=== PATIENT | female | born 2000 | race Asian ===

== ENCOUNTER 2020-07-06 13:09 | Outpatient (CLI) | payer OTHER, SELFPAY ==
--- NOTE | ~2020-07-06 | US_ITS ---
US breast BI complete DATE: 07/06/2020 13:48 INDICATION: Bilateral breast pain for years TECHNIQUE: Real-time imaging and color flow imaging of both complete breasts COMPARISON: None FINDINGS: Dense fibroglandular stroma is noted bilaterally. No suspicious mass or shadowing or suspic ious vascularity or other significant sonographic finding is noted. IMPRESSION: BI-RADS Category 1: Negative Recommendation: Routine mammographic screening beginning at age 40 unless there are high risk factors such as genetic predisposition or if breast physical findings or symptoms develop earlier. Reviewed, dictated and finalized at Location [facility]. Reviewed, dictated and finalized at location A. RNEY LAW CLERK IMPRESSION: BI-RADS Category 1: Negative Recommendation: Routine mammographic screening beginning at age 40 unless there are high risk factors such as genetic predisposition or if breast physical fin dings or symptoms develop earlier.
== END 2020-07-06 13:10 | disposition home or self-care (01) ==
PROVIDERS: PCP Emergency Medicine; Visit Provider Nurse Practitioner Obstetrics & Gynecology
DX: N64.4 Mastodynia (principal)
CPT/HCPCS: 76641

== ENCOUNTER 2021-05-20 07:30 | Outpatient (RCR) | payer OTHER, SELFPAY ==
--- NOTE | 2021-04-15 09:19 | PTOPEVAL ---
Thank you for referring Renuka Cohen to [facility].? The patient is scheduled to be seen for therapy? 1 x/week for 5 weeks. Please review, sign, date and return this plan of care JULISA. I agree with and certify that the following plan of care is medically necessary. Referring Physician Date Attending Provider: Handy Hernández MD Problem Diagnosis right RTC tear of supraspinatus and subscapularis Onset 4-5 months Additional Evaluation Detail She was perform body weight resistance or yoga until shoulder pain increased. Subjective Information Denies any injury to cause the Query Text:As Reported By Patient/ shoulder injury. She reports Family limitations with reaching behind her back. She report limitations with reaching onto high shelf, lifting objects, reaching behind for ADL's. She is unable to sleep on her right UE. She reports limitations with shoulder motion. 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 She is able to perform her job. She uses a ying for anything over 30#. Diagnostic Tests Other Tests For This Problem Yes: US- right and left shoulder Pain Assessment Self Report Pain Assessment Right Shoulder(s) Reported Pain Level 5 Pain Description Burning,Tightness Pain Frequency Continuous Lowest Pain Intensity 5 Greatest Pain Intensity 8 Pain Aggravating Factors ADL's,Lifting,Prolonged Position Upper Extremity Range of Motion Scapular/ Shoulder Range of Motion Left Shoulder Flexion - Active 170 Shoulder Extension - Active 52 Shoulder Abduction - Active 165 Shoulder Medial Rotation - Active 90 Shoulder Medial Rotation - Active T7Reach Behind the Back Shoulder Lateral Rotation - Active 85 Shoulder Lateral Rotation - Active T2:Reach Behind the Head Scapular/Shoulder Range of Motion Pain Limitations Scapular/Shoulder Range of Motion clicking with motions Right Shoulder Flexion - Active 160 Shoulder Extension - Active 40 Shoulder Abduction - Active 144 Shoulder Medial Rotation - Active 72 Shoulder Medial Rotation - Active T10:Reach Behind the Back Shoulder Lateral Rotation - Active 70
--- NOTE | 2021-05-20 08:27 | PTOPEVAL ---
Physical Therapy Discharge Note Thank you for referring Renuka Cohen to [facility]. Renuka has attended 6 therapy visits to address shoulder limitations. She has achieved her therapy goals and demonstrates indep with her HEP. Please see summary below for detail of progress. Will DC skilled therapy services at this time. Please review, sign, date and return this discharge summary JULISA. I agree with and certify that the following plan of care is medically necessary. Referring Physician Date Attending Provider: Handy Hernández MD Diagnosis right RTC tear of supraspinatus and subscapularis Onset 4-5 months Additional Evaluation Detail She was perform body weight resistance or yoga until shoulder pain increased. Subjective Information She reports improved ability Query Text:As Reported By Patient/ to perform reaching task with Family only slight pain. She is able to lift objects with decreased pain. She is able to sleep 4 to 6 hrs without problems. Denies any limitations with work related task. Denies any limitations with HEP. Pain Assessment Self Report Pain Assessment Right Shoulder(s) Reported Pain Level 2 Pain Description Burning,Tightness Pain Frequency Intermittent Lowest Pain Intensity 0 Greatest Pain Intensity 5 Upper Extremity Range of Motion Scapular/ Shoulder Range of Motion Left Shoulder Flexion - Active 175 Shoulder Extension - Active 52 Shoulder Abduction - Active 175 Shoulder Medial Rotation - Active 90 Shoulder Medial Rotation - Active T7:Reach Behind the Back Shoulder Lateral Rotation - Active 85 Shoulder Lateral Rotation - Active T2:Reach Behind the Head Right Shoulder Flexion - Active 175 Shoulder Extension - Active 50 Shoulder Abduction - Active 173 Shoulder Medial Rotation - Active 85 Shoulder Medial Rotation - Active T9Reach Behind the Back Shoulder Lateral Rotation - Active 85 Shoulder Lateral Rotation - Active T2*Reach Behind the Head Scapular/Shoulder Range of Motion no pain Comments Upper Extremity Muscle Strength Testing Scapular/Shoulder Right Scapular Retraction - Rhomboid 4 Good Scapular Retraction - Middle Trapezius 4 Good Scapular Retraction - Lower Trapezius 3+ Fair + Shoulder Flexion Strength 4+ Good + Shoulder Extension Strength 5 Normal Shoulder Abduction Strength 5 Normal Shoulder Medial Rotation Strength 5 Normal Shoulder Lateral Rotation Strength 4+ Good + Left Scapular Retraction - Rhomboid
== END 2021-05-20 15:49 | disposition home or self-care (01) ==
LOC: ANHPT 07:30
PROVIDERS: PCP Emergency Medicine; Visit Provider Emergency Medicine
DX: M25.511 Pain in right shoulder (principal)
CPT/HCPCS: 97014; 97110; 97140; 97162; G0283

== ENCOUNTER 2021-06-21 18:00 | Emergency (ER) | payer OTHER, SELFPAY ==
[2021-06-21 18:04] VITALS: BP 116/67; PULSE 76; RESP 12; TEMP 36.9; O2SAT 100
--- NOTE | 2021-06-21 18:05 | ED.URI ---
HPI - URI/Sore Throat General Chief Complaint: Upper Respiratory Infection Stated Complaint: SORE THROAT Time Seen by Provider: 06/21/21 18:13 Source: patient and RN notes reviewed Mode of arrival: ambulatory Limitations: no limitations History of Present Illness HPI Narrative: 20-year-old female presents with concern for 2-day history of sore throat, occasional cough. Reports she has been vaccinated for Covid and had a negative Covid test yesterday. She denies fever, body aches. Reports other family members have similar symptoms. Denies taking any [id number] intervention. MD elicited complaint: sore throat Related Data Allergies Allergy/AdvReac Type Severity Reaction Status Date / Time No Known Allergies Allergy Verified 08/27/18 15:11 Review of Systems Review of Systems: CONSTITUTIONAL: Denies malaise, chills, sweats, or fever. EYES: Denies visual changes, redness, or discharge. ENT: Denies rhinorrhea, congestion, sinus pain, otalgia reports sore throat. CARDIOVASCULAR: Denies chest pain, palpitations, or edema. RESPIRATORY: Reports cough. Denies dyspnea. GASTROINTESTINAL: Denies abdominal pain, nausea, vomiting, diarrhea SKIN: Denies rash or itching. MUSCULOSKELETAL: Denies myalgia. NEUROLOGIC: Denies headache. All systems reviewed & are unremarkable except as noted in HPI and below PMFSH Family History Family History (Updated 08/30/18 @ 14:32 by DOCTOR UNKNOWN) Mother Hypertension Family history of elevated blood lipids Social History Social History Smoking status: Never smoker Comments At time of signature, agree with nursing past medical, surgical, social and family history. There is no relevant family history pertinent to the presenting complaint Exam Narrative: GENERAL: Well-appearing, well-nourished, and in no acute distress. HEAD: Normocephalic EYES: PERRLA, conjunctivae clear ENT: Nares clear. Mucous membranes moist. TM pearly dong with dull light reflex bilaterally; no tragal tenderness. Oropharynx not erythematous without lesions. Tonsils not enlarged and without exudate, no drooling, no hoarseness, no trismus, uvula midline. NECK: Supple. No lymphadenopathy CHEST: Clear to auscultation, breath sounds equal. No wheezing, rhonchi, rales, or stridor. No respiratory distress, speaks in full sentences. HEART: Regular rate and rhythm. No murmur heard. SKIN: Warm, dry, no rash. NEURO: Alert and oriented x3. PSYCH: Normal mood and affect Course Course Emergency Course: Patient is aware of diagnosis, understands and agrees to treatment plan. Anticipatory guidance given. Patient agrees to follow-up as directed and is aware of reasons to seek care at the emergency department. Portions of this record may have been created with voice recognition software Vital Signs Vital signs: Reviewed. MDM - URI/Sore Throat MDM Narrative Medical decision making narrative: Differential diagnosis considered: Horne virus, strep pharyngitis, allergic rhinitis, upper respiratory tract infection, sinusitis, rhinosinusitis, nasopharyngitis. viral pharyngitis, otitis media, otitis externa, pneumonia, bronchitis, viral cough syndrome, viral syndrome, and influenza. Exam findings show no acute concerns or changes; patient is non-toxic appearing and is in no distress. Patient is appropriate for outpatient treatment and follow-up. Lab Data Attestation: I reviewed the patient's lab results. Critical Care Time Critical Care Time Critical Care Time: No Discharge Plan Discharge Clinical Impression: Upper respiratory infection Qualifiers: URI type: unspecified viral URI Qualified Code(s): J06.9 - Acute upper respiratory infection, unspecified Patient Disposition: Home, Self-Care Condition: Stable Instructions: Upper Respiratory Infection (ED) Additional Instructions: Your rapid strep swab was negative today at [facility]. A throat culture will be sent to the laboratory for further testing. If the test
== END 2021-06-21 18:29 | disposition home or self-care (01) ==
PROVIDERS: Emergency Provider Nurse Practitioner; PCP Emergency Medicine
DX: J06.9 Acute upper respiratory infection, unspecified (principal)
CPT/HCPCS: 87081; 87880; 99213; G0463

== ENCOUNTER 2022-04-24 17:40 | Emergency (ER) | payer OTHER, SELFPAY ==
[2022-04-24 17:50] VITALS: BP 128/91; PULSE 93; RESP 14; TEMP 37; O2SAT 100
--- NOTE | 2022-04-24 17:58 | ED.BACK ---
HPI - Back Pain/Injury General Chief Complaint: Back Pain/Injury Stated Complaint: lower back pain Time Seen by Provider: 04/24/22 17:55 Source: patient Mode of arrival: ambulatory Limitations: no limitations History of Present Illness HPI Narrative: Ms. Cohen is a 21-year-old female patient presenting to the clinic today with complaints of low back pain x 2-3 days. She reports the pain is across lower back. She is currently on her menses. She states that she is to get low back pain well on her menses however she has not had this in a while. She is concerned that she may have a urinary tract infection as she has had this before and had discomfort in her back. She denies any abnormal vaginal discharge prior to being on her menses. She denies any new sexual partners. Related Data Home Medications Medication Instructions Recorded Confirmed No Home Medications 04/24/22 04/24/22 Allergies Allergy/AdvReac Type Severity Reaction Status Date / Time No Known Allergies Allergy Verified 04/24/22 17:55 Review of Systems Review of Systems: Pertinent positives per HPI. Patient denies any fever, chills, rash, headache, visual changes, dizziness, cough, runny nose, sore throat, shortness of breath, chest pain, palpitations, nausea, vomiting, diarrhea, constipation, abdominal pain, or any urinary issues. [facility] Family History Family History Mother Hypertension Family history of elevated blood lipids Social History Social History Smoking status: Never smoker Comments At the time of my signature, I reviewed and agree with the nursing past medical, surgical, social, and family history. There is no relevant family history pertinent to the patient complaint. Exam Narrative: General: Well-developed, well nourished, in no apparent distress. Head: Normocephalic, atraumatic. Cardio: Regular rate and rhythm, s1 and s2 normal, no murmur appreciated. Resp: Clear to auscultation bilaterally, no rhonchi, rales, wheezing or rubs. Abdomen: Soft, pliable, bowel sounds present in all quadrants, non-tender to palpation, no organomegly, no CVAT tenderness. Musculoskeletal: No deformity, mild tender to palpation to the low back/paraspinous muscles, grossly normal range of motion, muscle strength strong and equal, peripheral pulse strong, no edema, no cyanosis, normal gait and station Course Course Emergency Course: Portions of this record may have been created with voice recognition software. Level of Care: Express Care Visit Vital Signs Vital signs: Vital signs reviewed MDM - Back Pain/Injury MDM Narrative Medical decision making narrative: At the time of visit patient is resting comfortably on the exam table. Urinalysis was completed and was negative for any sign of blood or infection. I suspect the patient is having low back pain due to her menses. Supportive measures were discussed with the patient she voiced understanding of discharge instructions and agrees to treatment plan. Differential Diagnosis Differential diagnosis: Likely lumbar radiculopathy, sciatica, strain of lumbar region, pyelonephritis and other (Urinary tract infection) Discharge Plan Discharge Clinical Impression: Low back pain Qualifiers: Chronicity: acute Back pain laterality: bilateral Sciatica presence: without sciatica Qualified Code(s): M54.50 - Low back pain, unspecified Patient Disposition: Home, Self-Care Condition: Stable Instructions: Antibiotic Form, Acute Low Back Pain (ED) Additional Instructions: UA negative for any signs of blood or infection Low back pain likely caused by menses Recommend applying heating pad to the affected area to help alleviate pain May take ibuprofen 600 mg every 6-8 hours as needed for pain Follow-up with your PCP in 3 to 5 days if symptoms persist or sooner if they worsen
== END 2022-04-24 18:26 | disposition home or self-care (01) ==
PROVIDERS: Emergency Provider Nurse Practitioner Family; PCP Emergency Medicine
DX: M54.50 Low back pain, unspecified (principal)
CPT/HCPCS: 81003; 99212; G0463

== ENCOUNTER 2023-04-20 09:06 | Outpatient (CLI) | payer OTHER, SELFPAY ==
--- NOTE | ~2023-04-20 | US_ITS ---
EXAMINATION: US venous doppler LE RT DATE: 04/20/2023 09:44 INDICATION: Right lower limb pain TECHNIQUE: Castro scale images without and with compression and Doppler images of the right lower extre mity veins were obtained. COMPARISON: None FINDINGS: The right common femoral vein, profunda femoral vein, femoral vein, popliteal vein, peronea l trunk, posterior tibial veins, and greater saphenous vein are patent. IMPRESSION: 1. Patent right lower extremity veins. No evidence of deep venous thrombosis. Reviewed, dictated and finalized at location B.
== END 2023-04-20 09:07 | disposition home or self-care (01) ==
PROVIDERS: PCP Emergency Medicine; Visit Provider Emergency Medicine
DX: M79.661 Pain in right lower leg (principal); M79.89 Other specified soft tissue disorders
CPT/HCPCS: 93971

== ENCOUNTER 2023-06-27 15:02 | Outpatient (CLI) | payer OTHER, SELFPAY ==
--- NOTE | ~2023-06-27 | US_ITS ---
EXAMINATION: US abdomen complete DATE: 06/27/2023 INDICATION: Abdominal pain. TECHNIQUE: Multiple grayscale and Doppler ultrasound images of the abdomen were obtained. COMPARISON: None FINDINGS: The visualized portions of the head, body, and tail of the pancreas are normal. The liver i s normal without focal lesion. There is normal flow in main portal vein. The gallbladder is contracte d. No gallstones. The common duct is normal and measures 3 mm. The kidneys are normal in size. The sp concetta is normal. Inferior vena cave is normal. The abdominal aorta is normal. IMPRESSION: 1. Normal complete abdomen ultrasound. Reviewed, dictated and finalized at location A. ANCE ENGINEERING TECHNICIAN
[2023-06-27 18:02] LABS: Basophils Percent Auto 0.5 % (0.2-1.2); Eosinophils Absolute Auto 0.1 K/mm3 (0-0.3); Eosinophils Percent Auto 1.3 % (0-4.4); Hematocrit 37.4 % (37.0-47.0); Hemoglobin 11.5 g/dL (12.0-15.0); Immature Granulocyte Absolute 0.01 K/mm3 (0.00-0.031); Immature Granulocyte Percent A 0.2 % (0-0.5); Immature Platelet Fraction Pct 3.1 % (0.9-11.2); Lymphocytes Absolute Auto 2.82 K/mm3 (0.9-3.2); Lymphocytes Percent Auto 45.5 % (18.3-44.2); Mean Corpuscular HGB Conc 30.7 g/dl (32-36); Mean Corpuscular Hemoglobin 21.9 pg (26-34); Mean Corpuscular Volume 71.1 fl (80-100); Monocytes Absolute Auto 0.5 K/mm3 (0.1-0.6); Monocytes Percent Auto 7.6 % (2.6-8.5); Neutrophils Absolute Auto 2.8 K/mm3 (1.3-6.7); Neutrophils Percent Auto 44.9 % (45.5-73.1); Platelet Count Result 231 k/mm3 (150-375); Red Blood Count 5.26 M/mm3 (4.2-5.4); Red Cell Distribution Width 16.3 % (11.5-14.5); White Blood Count 6.2 K/mm3 (4.5-10.0)
[2023-06-27 18:12] LABS: Alanine Aminotransferase 37 U/L (6-35); Albumin Level 4.5 g/dL (3.5-5.1); Alkaline Phosphatase 57 U/L (38-126); Aspartate Amino Transferase 26 U/L (14-36); Bilirubin,Total 0.7 mg/dL (0.2-1.3)
[2023-06-27 18:39] LABS: Iron 59 ug/dL (37-170)
[2023-06-27 18:49] LABS: Percent Iron Saturation 22 % (20-50)
[2023-06-27 18:56] LABS: Free T4 Free Thyroxine 1.24 ng/mL (0.78-2.19)
[2023-06-27 19:17] LABS: Platelet Estimate Adequate (Adequate); Schistocytes None Seen (NORMAL)
[2023-06-27 19:18] LABS: Hypochromasia 1+ (NORMAL)
[2023-06-27 19:20] LABS: Anisocytosis 2+ (NORMAL)
[2023-06-27 21:05] LABS: Appearance Urine Clear (Clear); Color Urine Yellow (Yellow)
[2023-06-27 21:06] LABS: Blood Urine Negative (Negative); Glucose Urine UA Negative (Negative); Ketones Urine Negative (Negative); Protein Urine 1+ mg/dL (Negative)
[2023-06-27 21:07] LABS: Bilirubin Urine Negative (Negative); Nitrate Urine Negative (Negative); Urobilinogen Urine 0.2 mg/dL (<2.0)
[2023-06-27 21:08] LABS: Add Urine Microscopic? YES; Leukocyte Esterase Ur Negative LEU/UL (NEGATIVE); RBC Urine None seen /hpf (0-2); Squamous Epithelial Cell Urine Rare /hpf (Few); WBC Urine None seen /hpf (0-3)
[2023-06-27 21:09] LABS: Bacteria Urine None Seen /hpf
== END 2023-06-27 15:03 | disposition home or self-care (01) ==
PROVIDERS: PCP Emergency Medicine; Visit Provider Emergency Medicine
DX: R10.84 Generalized abdominal pain (principal)
CPT/HCPCS: 36415; 76700; 80076; 81001; 82607; 82746; 83540; 83550; 84439; 84443; 85025; 85055; 87086

== ENCOUNTER 2023-11-14 17:43 | Emergency (ER) | payer OTHER, SELFPAY ==
--- NOTE | 2023-11-14 17:45 | ED.FEMALEGU ---
HPI - Female Genitourinary General Chief complaint: Urogenital-Female Stated complaint: ABD PAIN/URINARY URGENCY Time Seen by Provider: 11/14/23 17:45 Source: patient Mode of arrival: ambulatory Limitations: no limitations History of Present Illness HPI Narrative: Renuka is a 23-year-old female patient presenting to the clinic today with complaints of left lower abdominal discomfort, bilateral low back pain, and urinary urgency since Sunday night. She reports she began having diarrhea last night. No known fever, chills, body aches. Denies any nausea or vomiting. Has a history of kidney stones. Related Data Allergies Allergy/AdvReac Type Severity Reaction Status Date / Time No Known Allergies Allergy Verified 11/14/23 17:59 Review of Systems Review of Systems: Pertinent positives per HPI. Patient denies any fever, chills, rash, headache, visual changes, dizziness, cough, shortness of breath, chest pain, palpitations, nausea, vomiting, diarrhea, constipation. PMFSH Family History Family History Mother Hypertension Family history of elevated blood lipids Social History Social History Smoking status: Never smoker Comments At the time of my signature, I reviewed and agree with the nursing past medical, surgical, social, and family history. There is no relevant family history pertinent to the patient complaint. Exam Narrative: General: Well-developed, well nourished, in no apparent distress. Head: Normocephalic, atraumatic. Cardio: Regular rate and rhythm, s1 and s2 normal, no murmur appreciated. Resp: Clear to auscultation bilaterally, no rhonchi, rales, wheezing or rubs. Abdomen: Soft, pliable, bowel sounds present in all quadrants, non-tender to palpation, no organomegly, no CVAT tenderness. Course Course Emergency Course: Portions of this record may have been created with voice recognition software. Level of Care: Express Care Visit Vital Signs Vital signs: Vital Signs Temperature 37.1 C 11/14/23 17:48 Pulse Rate 81 11/14/23 17:48 Respiratory Rate 16 11/14/23 17:48 Blood Pressure 129/72 11/14/23 17:48 Pulse Oximetry 100 11/14/23 17:48 Temperature 37.1 C 11/14/23 17:48 Pulse Rate 81 11/14/23 17:48 Respiratory Rate 16 11/14/23 17:48 Blood Pressure 129/72 11/14/23 17:48 Pulse Oximetry 100 11/14/23 17:48 Oxygen Delivery Room Air 11/14/23 17:55 Vital signs reviewed MDM - Female Genitourinary MDM Narrative Medical decision making narrative: At the time of visit patient is resting comfortably on the exam table. Patient appears to be nontoxic. Labs:UA positive for 2+leukocytes,2+blood, and 2+protein. We will send for culture Plan: I suspect patient has acute UTI. Prescription for Augmentin was sent to the pharmacy. Supportive measures were discussed with the patient and they voiced understanding discharge instructions and agrees to treatment plan. Return precautions reviewed Differential Diagnosis Differential diagnosis: Likely urinary tract infection, cystitis and other (Pyelonephritis, ureterolithiasis, nephrolithiasis, acute infectious diarrhea) Lab Data Labs: Urine Glucose Negative Reference Range: Negative Urine Bilirubin Negative Reference Range: Negative Urine Ketone Negative Reference Range: Negative Urine Specific [place] 1.020 Reference Range:1.001-1.035 Urine Blood 2+ Reference Range: Negative * * Urine pH 7.0
[2023-11-14 17:48] VITALS: BP 129/72; PULSE 81; RESP 16; TEMP 37.1; O2SAT 100
== END 2023-11-14 18:06 | disposition home or self-care (01) ==
PROVIDERS: Emergency Provider Nurse Practitioner Family; PCP Emergency Medicine
DX: N39.0 Urinary tract infection, site not specified (principal); B96.20 Unspecified Escherichia coli [E. coli] as the cause of diseases classified elsewhere
CPT/HCPCS: 81003; 87086; 87186; 99213; G0463

== ENCOUNTER 2024-03-03 08:13 | Outpatient (CLI) | payer OTHER, SELFPAY ==
--- NOTE | ~2024-03-03 | US_ITS ---
US abdomen complete EXAMINATION: US Abdomen Complete INDICATION: Abdomen pain PROCEDURE: Realtime High Resolution abdomen ultrasound. COMPARISON: No prior studies for comparison FINDINGS: Gallbladder within normal limits. No gallstones, pericholecystic fluid, gallbladder wall t hickening or biliary dilatation. Common bile duct measures 5.5 mm. Liver echotexture within normal limits without focal mass. Pancreas within normal limits. Pancreati c tail is obscured by bowel gas. Spleen is unremarkeable. Renal echotexture is within normal limits bilaterally without hydronephrosis, contour deforming mass or renal stone. Right kidney measures 10.6 cm. Left kidney measures 10.8 cm. Visualized aspects of the aorta and IVC are within normal limits. Portal vein is patent. No sonograph ic Li's sign indicated by the technologist. IMPRESSION: 1: Normal abdominal ultrasound. Reviewed, dictated and finalized at location B.
== END 2024-03-03 08:14 | disposition home or self-care (01) ==
PROVIDERS: PCP Emergency Medicine; Visit Provider Emergency Medicine
DX: R10.84 Generalized abdominal pain (principal)
CPT/HCPCS: 76700

== ENCOUNTER 2025-07-08 00:20 | Day surgery (SDC) | payer OTHER, SELFPAY ==
[2025-06-25 09:28] VITALS: BMI 20.7
--- OUTSIDE RECORDS SUMMARY | 2025-07-08 00:25 | XMS_ITS | Encounter Summary ---
Author Organization [facility] Address [address] [place] [address] Phone Care Team Providers Care Brokerage Purchase And Sale Clerk Name Role Phone Handy Hernández MD Primary Care Provider + [phone] Encounter Details Date Type Department Care Team (Late st Contact Info) Description 06/19/2025 Results Follow-Up [facility] Medicine Rheumatology [address] [facility] Medicine 5th [place] [address] [place] [address] Elaine Swenson MD [address] [place] [address] Anti-double stranded DNA abs, Urinalysis reflex to microscopic, Protein / creatinine ratio, urine, random, Additional followed-up results: 3 Social History Tobacco Use Types Packs/Day Years Used Date Smoking Tobacco: Never Smokeless Tobacco: Never Alcohol Use Standard Drinks/Week Comments Never 0 (1 standard drink = 0.6 oz pur e alcohol) Social Connection and Isolation Panel Answer Date Recorded In a typical week, how many times do you talk on the phone with family, friends, or neighbors? More than three times a week 04/09/2024 How often do you get togethe r with friends or relatives? More than three times a week 04/09/2024 How often do you attend chur or sikh services? 1 to 4 times per year 04/09/2024 Do you belong to any clubs o r organizations such as tenriism groups, unions, fraternal or athletic groups, or school groups? Yes 04/09/2024 How often do you attend meet ings of the clubs or organizations you belong to? More than 4 times per year 04/09/2024 Are you , , di vorced, , never , or living with a partner? Never 04/09/2024 Overall Financial Resource Strain (CARDIA) Answe r Date Recorded How hard is it for you to pa y for the very basics like food, housing, medical care, and heating? Not hard at all 04/09/2024 PHQ-2 Answer Date Recorded Patient Health Questionnaire-2 Score 0 04/09/2024 [facility] - Occupational Stress Questionnaire Answer Date Recorded Do you feel stress - tense, restless, nervous, or anxious, or unable to sleep at night because your mind is troubled all the time - these days? Only a little 04/09/2024 Exercise Vital Sign Answer Date Recorde d On average, how many days pe r week do you engage in moderate to strenuous exercise (like a brisk walk)? 1 day 04/09/2024 On average, how many minutes do you engage in exercise at this level? 90 min 04/09/2024 Hunger Vital Sign Answer Date Recorded Within the past 12 months, y ou worried that your food would run out before you got the money to buy more. Never true 04/09/20 24 Within the past 12 months, t he food you bought just didn't last and you didn't have money to get more. Never true 04/09/2024 PRAPARE - Transportation Answer Date Re corded In the past 12 months, has l ack of transportation kept you from medical appointments or from getting medications? No 03/14 In the past 12 months, has l ack of transportation kept you from meetings, work, or from getting things needed for daily living? No 04/09/2024 Housing Stability Vital Sign Answer Jignesh e Recorded In the last 12 months, was t here a time when you were not able to pay the mortgage or rent on time? No 04/09/2024 Number of Times Moved in the Last Year Not on fi le 04/09/2024 Homeless in the Last Year Not on file 2023 AUDIT-C Answer Date Recorded Q1: How often do you have a drink containing alcohol? Never 06/18/2025 Q2: How many drinks containi ng alcohol do you have on a typical day when you are drinking? Patient does not drink Q3: How often do you have si x or more drinks on one occasion? Never 06/18/2025 Comments Unknown Sex and Gender Information Value Date Recorded Sex Assigned at Not on file Legal Sex Female 9:11 AM CDT Gender Identity Not on file Sexual Orientation Not on file documented as of this encounter Plan of Treatment Not on file documented as of this encounter Visit Diagnoses Not on filedocumented in this encounter Care Teams Brokerage Purchase And Sale Clerk Relationship Specialty Start Date End Date Handy Hernández MD [address] [place] [address] PCP - General Family Medicine 03/25/24 documented as of this encounter
--- OUTSIDE RECORDS SUMMARY | 2025-07-08 00:25 | XMS_ITS | Data Portability ---
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 Patient will come back in a year unless there are new symptoms. [email or web address] Not available 08/22/2024 11:01:50 Plan of Treatment Reminders Order Date Submit Date Provider Last Modified By Organization Details Last Modified Time Details Appointments None recorded. Lab urinalysis, dipstick 2024 025 latisha [place], [address], [place], [address], 11:51:27 culture, urine 2024 025 [facility] (Lab), [address], [place], [address], 23:49:48 test, urine 2024 025 [email or web address] [place], [address], [place], [address], 12:19:56 unlisted lab - women's health swab plus, DAPHNEY 2024 025 [facility] (Lab), [address], [place], [address], 5 23:49:48 test, urine 2024 025 [email or web address] [place], [address], [place], [address], 5 15:14:21 pap, IG + reflex HPV if ASC-U - if positive HPV run subtyping 16,18/45 2024 025 [facility] (Lab), [address], [place], [address], 5 09:37:18 Referral pelvic floor therapy referral 2024 025 [facility] (Out[facility]), [address], [place], [address], 04:02:40 Procedures None recorded. Surgeries None recorded. Imaging US, pelvis [address], [address], [place], [address], 22:15:55 US, transvagina l 2024 [address], [address], [place], [address], 22:15:55 US, pelvis, complete [facility] [address], [address], [place], [address], 5 17:55:47 Medication Orders metronidazo le 500 mg tablet 2024 025 [id number], [address], [place], [place], [id number], 5 11:29:37 fluconazole 150 mg tablet 2024 025 [id number], [address], [place], [place], [id number], 11:29:36 Patient TargetsNo targets recorded. Patient InstructionsNo instructions recorded. Reason for Referral Pelvic Floor Therapy Referra l for Pain in female genitalia on intercourse Referring Physician: Morena Brown, POLITICAL ANALYST, Encounter Date: 02/05/2025 Results Created Date Observation Date Name Description Value Unit Range Abnormal Flag Note LastModifiedBy Organization Detail LastModifiedTime 08/30/19 24 08/30/2023 VAGIN ITIS/ VAGIN OSIS, DNA PROBE kolton sp. detection, direct probe Negati ve negati ve Not Available [facility] (Lab) [address], [place], [address], 08/31/2023 12:40:23 08/30/19 24 08/30/2023 VAGIN ITIS/ VAGIN OSIS, DNA PROBE gardnerella vag. detection, direct probe Negati ve negati ve Not Available [facility] (Lab) [address], [place], [address], 08/31/2023 12:40:23 08/30/19 24 08/30/2023 VAGIN ITIS/ VAGIN OSIS, DNA PROBE trichomonas vag. detection, direct probe Negati ve negati ve Not Available [facility] (Lab) [address], [place], [address], 08/31/2023 12:40:23 08/22/19 25 08/22/2024 IMAGE GUIDE D PAP, REFLE X HPV IF ASCUS ONLY image guided Pap, reflex HPV ASCUS only SEE RESULT S BELOW abnormal CASE REPOR T: Cytol ogy Gynec ologi bailey Repor t Case: [id number] Autho riagnesn g Provi monico: Morena Brown NP Colle cted: 08/22 1134 Order ing Locat ion: [place] Patho log[facility] Recei john: 08/23 0402 First Scree n: Reshma David, [place] Patho logis t: William Davis MD Speci men: Sophia rosenberg Pap - Image d, Cervi x STATE MENT OF ADEQU ACY: Satis facto ry for evalu ation Trans forma tion zone compo nent prese nt ----- ----- ----- ----- ----- ----- ----- ----- ----- ----- ----- ----- ----- ----- ----- ----- ----- ---- FINAL DIAGN OSIS: Epith elial Cell Abnor malit y, Squam ous Cell: Low Grade Squam ous Intra epith elial Lesio n (LSIL ). Shift in tati sugge stive of bacte rial vagin osis. 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 CLINI BAILEY INFOR MATIO N: Menst rual Statu s: LMP (if appli cable ): Clini bailey Histo ry/Pr eviou s Pap: Type of Neopl brenda (if appli cable ): Signi fican t Clini bailey Findi ngs: Other Histo ry: Hormo tyrone (if appli cable ): MARLY MACIAS FOLLO W-UP: Follo w up as warra nted, based on curre nt guide lines and indiv idual patie nt consi derat ions. Not Available [facility] (Lab) [address], [place], [address], 09/01/2024 09:37:18 09/09/19 25 09/12/2024 CERVI X/END OCERV IX cervical histology Negati ve normal Not Available [facility] ([facility]) [address], [place], [address], 09/12/2024 12:05:07 09/09/19 25 09/12/2024 CERVI X/END OCERV IX endocervical brushing histology Negati ve normal Not Available [facility] ([facility]) [address], [place], [address], 09/12/2024 12:05:07 09/09/19 25 09/12/2024 CERVI X/END OCERV IX results GROSS ING INFOR MATIO N: (B1) CERVI X Recei john in forma justina on a soft biops y brush is a 0.5 cm aggre gate of clear -to-m ilky mucoi d/fib rinou s mater ial. Speci men is filte red and total ly submi tted. B1 DIAGN OSIS: (B1) CERVI X Benig n ectoc ervic al and endoc ervic al tissu e. No intra epith elial lesio n. UNSP ABNOR MAL CYTOL OG FINDI NGS IN SPECM N FROM CERVI X UTERI (R87. 619) GROSS ING INFOR MATIO N: (A1) ENDOC ERVIX Recei john in forma justina on a soft ecc brush is a 1.0 cm aggre gate of pink- tinge d mucoi d/fib rinou s mater ial. Speci men is filte red and total ly submi tted. A1 DIAGN OSIS: (A1) ENDOC ERVIX Benig n ectoc ervic al and endoc ervic al tissu e. No intra epith elial lesio n. UNSP ABNOR MAL CYTOL OG FINDI NGS IN SPECM N FROM CERVI X UTERI (R87. 619) Not Available [facility] ([facility]) [address], [place], [address], 09/12/2024 12:05:07 09/09/19 25 09/09/2024 pregn nikki test, urine HCG negati ve Not Available [place] [address], [place], [address], 09/09/2024 15:14:14 02/06/20 25 02/05/2025 WOMEN 'S HEALT H SWAB PLUS, DAPHNEY bacterial vaginosis (bv), tma Negati ve negati ve Not Available [facility] (Lab) [address], [place], [address], 02/06/2025 23:49:48 02/06/20 25 02/05/2025 WOMEN 'S HEALT H SWAB PLUS, DAPHNEY kolton species, tma Negati ve negati ve Not Available [facility] (Lab) [address], [place], [address], 02/06/2025 23:49:48 02/06/20 25 02/05/2025 WOMEN 'S HEALT H SWAB PLUS, DAPHNEY kolton glabrata, tma Negati ve negati ve Not Available [facility] ([facility]) [address], [place], [address], 02/06/2025 23:49:48 02/06/20 25 02/05/2025 WOMEN 'S HEALT H SWAB PLUS, DAPHNEY trichomonas vaginalis, tma Negati ve negati ve Not Available [facility] ([facility]) [address], [place], [address], 02/06/2025 23:49:48 02/06/20 25 02/05/2025 WOMEN 'S HEALT H SWAB PLUS, DAPHNEY chlamydia trachomatis, PCR Negati ve negati ve Not Available [facility] ([facility]) [address] [place], [address], 02/06/2025 23:49:48 02/06/20 25 02/05/2025 WOMEN 'S HEALT H SWAB PLUS, DAPHNEY neisseria gonorrhoeae, PCR Negati ve negati ve Bacte rial vagin osis detec ts the follo wing bacte mir assoc iated with bacte rial vagin osis (BV): Lacto bacil darryl (L. gasse ri, L. crisp atus and L. jense mamadou), Gardn erell a vagin nii, and Atopo bium vagin ae. A singl e quali tativ e resul t is repor chapin base on instr ument softw are to deter mine BV posit josué or negat josué statu s. The Regla da speci es group tests for C. albic ans, C. tropi calis , C. parap magdalena is, C. dubli niens is. Testi ng is perfo rmed using the Trans cript ion Media chapin Ampli ficat ion metho d. Tests for Regla da glabr prasanna, Trich omona s vagin nii, Chlam ydia trach omati s, and Neiss eria gonor rhoea e are also inclu ded in this panel . Not Available [facility] ([facility]) [address], [place], [address], 02/06/2025 23:49:48 02/06/2002/05/2025 CULTU RE: URINE result report SEE RESULT S BELOW Test: Cultu re: Urine Speci men Sourc e: Urine Voide d Speci men Type: Urine Speci men Date: 2024 1117 Resul t Date: 2024 2246 Resul t Statu s: Final resul t Abnor mal: No Resul ting Lab: [facility] [address] [facility] [address] Tel: CULTU RE ----- ----- ----- --- No growt h in 1 day (dete ction level of 10,00 0 colon ies / ml.) Not Available [facility] ([facility]) [address] [place], [address], 02/06/2025 23:49:48 02/06/20 25 02/05/2025 pregn nikki test, urine HCG negati ve Not Available [place] [address], [place], [address], 02/05/2025 12:19:49 02/06/20 25 02/05/2025 urina lysis , dipst ick Leukocytes trace Not Available [facility] [address], [place], [address], 02/05/2025 11:50:44 02/06/20 25 02/05/2025 urina lysis , dipst ick Nitrite - Not Available [place] [address], [place], [address], 02/05/2025 11:50:44 02/06/20 25 02/05/2025 urina lysis , dipst ick Urobilinogen Normal Not Available [facility] [address], [place], [address], 02/05/2025 11:50:44 02/06/20 25 02/05/2025 urina lysis , dipst ick Protein + Not Available [place] [address], [place], [address], 02/05/2025 11:50:44 02/06/20 25 02/05/2025 urina lysis , dipst ick pH 7 Not Available [place] [address], [place], [address], 02/05/2025 11:50:44 02/06/20 25 02/05/2025 urina lysis , dipst ick Specific Convoy 1.010 Not Available [facility] [address], [place], [address], 02/05/2025 11:50:44 02/06/20 25 02/05/2025 urina lysis , dipst ick Ketone - Not Available [place] [address], [place], [address], 02/05/2025 11:50:44 02/06/20 25 02/05/2025 urina lysis , dipst ick Bilirubin - Not Available [facility] [address], [place], [address], 02/05/2025 11:50:44 02/06/20 25 02/05/2025 urina lysis , dipst ick Glucose Normal Not Available [place] [address], [place], [address], 02/05/2025 11:50:44 02/06/20 25 02/05/2025 urina lysis , dipst ick Appearance clear Not Available [facility] [address], [place], [address], 02/05/2025 11:50:44 02/06/20 25 02/05/2025 urina lysis , dipst ick Color yellow Not Available [place] [address], [place], [address], 02/05/2025 11:50:44 02/12/20 25 02/11/2025 US, pelvi s No observ ation record ed. [email or web address] [place] [address], [place], [address], 02/11/2025 13:07:15 02/12/20 25 02/11/2025 US, trans vagin al No observ ation record ed. [email or web address] [place] [address], [place], [address], 02/11/2025 13:07:26 02/12/20 25 02/11/2025 US, pelvi s No observ ation record ed. [email or web address] Trice [address] [place] [address], [place], [address], 02/20/2025 13:05:45 Result Notes None recorded. Problems Name Problem SNOMED Code Status Onset Date Resolution Date Notes Provider Name and Address Organization Details Recorded Time Finding of pattern of menstrual cycle Completed 201504/01/2021 metrorrhag ia;Recorde d Elsewhere: No Locatio n: [facility] rce: EHR Chroni c: N Practice ID: 0001 Billa ble Time: 04:15:00 PM Geraldine [facility] 12:48:[address] Concept Completed 201704/01/2021 Encntr for business account specialist exam (general) (routine) w/o abn findings;R ecorded Elsewhere: No Locatio n: [facility] rce: EHR Chroni c: N Practice ID: 0001 Billa ble Time: 04:00:00 PM Geraldine Hassan [facility] 12:48:[address] Concept Completed 201704/01/2021 Encntr for routine child health exam w/o abnormal findings;R ecorded Elsewhere: No Locatio n: [facility] rce: EHR Chroni c: N Practice ID: 0001 Billa ble Time: 04:00:00 PM Geraldine [facility] 12:48:[address] Concept Completed 201804/01/2021 Encntr for general adult medical exam w/o abnormal findings;R ecorded Elsewhere: No Locatio n: [facility] rce: EHR Chroni c: N Practice ID: 0001 Billa ble Time: 09:45:00 AM Geraldine [facility] 12:48:47 Finding of menstrual bleeding Completed 201804/01/2021 Menorrhagi a;Recorded Elsewhere: No Locatio n: [facility] rce: EHR Chroni c: N Practice ID: 0001 Billa ble Time: 09:45:00 AM Geraldine Hassan [facility] 12:48:44 Procedure by method Completed 201804/01/2021 Encounter for other general counseling and advice on contracept ion;Record ed Elsewhere: No Locatio n: [facility] rce: EHR Chroni c: N Practice ID: 0001 Billa ble Time: 02:30:00 PM Geraldine Hassan [facility] 12:48:42 Problem Notes None recorded. Procedures Surgical History Date Name Laterality Status Provider Name and Address Organization Details Recorded Time 09/09/19 25 Colposcopy completed SANDRA ORTA MD [address], [place], [address], [facility] 09/09/2024 15:26:52 09/09/19 25 colposcopy completed Becki Wetzel [facility] 02/05/2025 10:57:59 08/22/19 25 Date of Last Pap Smear completed Donita Gonzalez [facility] 09/02/2024 12:27:19 07/14/20 20 Date of Last Mammogram completed Geraldine Hassan [facility] 05/04/2022 17:00:05 Imaging Results None recorded. Procedure Notes None recorded. Medical Equipment None Reported. Allergies No known drug allergies Medications Name Sig Start Date Stop Date Status Note LastModified by Organization Details LastModified Time celecoxib 200 mg capsule TAKE 1 CAPSULE BY MOUTH EVERY DAY NEEDED 08/30 completed Not Available Not Available Not Available fluconazo le 150 mg tablet take 1 tablet by mouth now, repeat in 7 days if needed 2024 active Not Available Not Available Not Avai lable metronida zole 0.75 % (37.5 mg/5 gram) vaginal gel INSERT 1 APPLICAT ORFUL VAGINALL Y EVERY DAY AT BEDTIME FOR 5 DAYS 09/09 completed Not Available Not Available Not Available famotidin e 40 mg tablet TAKE 1 TABLET BY MOUTH EVERY DAY active Not Available Not Available No t Available hydroxyzi ne pamoate 50 mg capsule TAKE 1 CAPSULE BY MOUTH EVERY NIGHT AT BEDTIME NEEDED 08/30 completed Not Available Not Available Not Available levonorge strel 0.15 mg-ethiny l estradiol 0.03 mg tablet take 1 tablet by oral route every day 04/01 completed Prescrib ed Elsewher e: Yes Loca tion: [facility] odify By: [email or web address] Encount er DateTime : 10/30/19 09:45:00 AM Not Available Not Available Not Available metronida zole 500 mg tablet Take 1 tablet twice a day by oral route with meals for 7 days. 2024 active Not Available Not Available Not Avai lable ciproflox acin 500 mg tablet TAKE 1 TABLET BY MOUTH TWICE A DAY 04/01 completed Not Available Not Available Not Available buspirone 7.5 mg tablet TAKE 1 TABLET BY MOUTH TWICE A DAY *AVOID DRIVING OR OPERATIN ASSET4 MACHINES 06/28 completed Not Available Not Available Not Available ondansetr on 4 mg disintegr ating tablet Place 1 tablet twice a day by translin gual route as needed for 7 days. 05/15 completed Not Available Not Available Not Available amoxicill in 875 mg-potass ium clavulana te 125 mg tablet TAKE 1 TABLET BY MOUTH EVERY 12 HOURS FOR 7 DAYS 08/22 completed Not Available Not Available Not Available 09/01 (21) 1 mg-20 mcg tablet TAKE 1 TABLET BY ORAL ROUTE EVERY DAY 10/29 completed Prescrib ed Elsewher e: No [facility] By: [email or web address] Encount er DateTime : 01/09/20 03:31:52 PM Not Available Not Available Not Available 09/01 (28) 1 mg-20 mcg (21)/75 mg (7) tablet take 1 tablet by oral route every day 08/20 completed Prescrib ed Elsewher e: No Locat ion: [facility] odify By: héctor colon DateTime : 02/01/20 09:46:53 AM Not Available Not Available Not Available nitrofura ntoin monohydra te/macroc rystals 100 mg capsule 08/22 completed Not Available Not Available Not Available Fish Oil active Not Available Not Avai lable Not Available levonorge strel 06/28 completed Not Available Not Available Not Available Adults Multivita min 2023 active Not Available Not Available Not Avai lable Vitals Date Recorded Body height Body mass index (BMI) Body weight Systolic And Diastolic Provider Name and Address Organization Details Last Updated DateTime 08/22/2024 157.48 cm 23.5 kg/m2 36421.26 g 114/77 mm[Hg] Yesica Hernandez [facility] 08/22/2024 11:20:02 Date Recorded Body height Body mass index (BMI) Body weight Systolic And Diastolic Provider Name and Address Organization Details Last Updated DateTime 09/09/2024 157.48 cm 22.5 kg/m2 67914.86 g 111/71 mm[Hg] Laura Morse [facility] 09/09/2024 14:38:58 Date Recorded Body height Body mass index (BMI) Body weight Systolic And Diastolic Provider Name and Address Organization Details Last Updated DateTime 09/27/2023 157.48 cm 22.9 kg/m2 72637.76 g 121/78 mm[Hg] Kiki Esposito [facility] 09/27/2023 15:45:51 Date Recorded Body height Body mass index (BMI) Body weight Systolic And Diastolic Provider Name and Address Organization Details Last Updated DateTime 02/05/2025 157.48 cm 21.4 kg/m2 40203.03 g 108/74 mm[Hg] Becki Wetzel [facility] 02/05/2025 10:55:49 Social History Question Answer Notes LastModified by Organizat ion Details LastModified Time Tobacco Smoking Status Never Smoker [facility] 05/15/2023 09:37:37 Do You Have An Advance Directive? No Information n ot available 05/05/2022 Are You Blind Or Do You Have Difficulty Seeing? No Information n ot available 04/01/2021 What Is Your Level Of Caffeine Consumption? Occasional [email or web address] Information not available 02/05/2025 How Much Tobacco Do You Chew? None Information not available 05/05/2022 In The 14 Days Before Symptom Onset, Have You Had Close Contact With A Laboratory-confirm ed COVID-19 While That Case Was Ill? No Information n ot available 05/05/2022 In The 14 Days Before Symptom Onset, Have You Had Close Contact With A Person Who Is Under Investigation For COVID-19 While That Person Was Ill? No Information not available 05/05/2022 Have You Been To An Area Known To Be High Risk For COVID-19? No [email or web address] Information not available 08/22/2024 Are You Deaf Or Do You Have Serious Difficulty Hearing? No Information not available 04/01/2021 What Type Of Diet Are You Following? REGULAR Information n ot available 04/01/2021 What Is The Highest Grade Or Level Of School You Have Completed Or The Highest Degree You Have Received? [id number] Information not available 05/05/2022 Are There Any Guns Present In Your Home? No Information not available 05/05/2022 Do You Use Protection During Sex? Usually Information not available 05/05/2022 Do You Use Your Seat Belt Or Car Seat Routinely? Yes Information not available 04/01/2021 Do You Have Smoke And Carbon Monoxide Detectors In Your Home? Yes Information not available 04/01/2021 How Much Tobacco Do You Smoke? No Information not available 05/05/2022 Do You Use Sunscreen Routinely? Yes Information not available 04/01/2021 Have You Used IV Drugs? No Information not available 05/05/2022 Sex: Unknown Functional Status Question Answer Note LastModified by Organizat ion Details LastModified Time Do you use any illicit or recreational drugs? No Information not available 04/01/2021 What is your level of alcohol consumption? Occasional Information not available 04/01/2021 Are you able to walk independently without assistance or assistive devices? 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 Occasional Information not available 05/05/2022 Mental Status Question Answer Note LastModified by Organization D etails LastModified Time Do you feel stressed (tense, restless, nervous, or anxious, or unable to sleep at night)? [id number] [email or web address] Information not available 02/05/2025 Family History Relationship Description Onset Age of this Age Resolved Age Notes LastModified by Organization Details LastModified Time Mother Diabetes mellitus [email or web address] Not available 2023 15:41:32 Mother Hypercholest erolemia [email or web address] Not available 2023 15:41:33 Mother Hypertensive disorder [email or web address] Not available 2023 15:41:33 Maternal Grandmother Diabetes mellitus [email or web address] Not available 2023 15:41:33 Maternal Grandmother Hypercholest erolemia [email or web address] Not available 2023 15:41:33 Medical History Condition Response Allergies (Food, seasonal, environmental ) N Other N Breast Cancer N Drug/Latex Allergies/Reactions N Blood Transfusion N Dermatologic Disorders N Lung Disease N Defects or Inherited Disease N Breast Problem N Gestational Diabetes N Hematologic disorders N Anesthesia Complications N History of STI N Deep Vein Thrombosis N Polycystic ovary syndrome N Anxiety Disorder N Autoimmune disease Y Arthritis N Infertility N Polyps N Acid Reflux (GERD) N History of abnormal pap Y Cancer N Stroke N Varicosities N Neurologic/Epilepsy N Endometriosis N High Cholesterol N Headaches N Fibromyalgia N Kidney Disease N Heart Problems N Kidney or Bladder Problems N Thyroid Problems N GI Problems N Eating Disorder N Anemia N Art (IVF or FET) N Psychiatric Illness N Ovarian Cancer N Diabetes N Pulmonary (TB, Asthma) N Hepatitis/Liver Disease N Eczema N Urinary Tract Infection N Abuse/Domestic Violence N Asthma N Trauma/Violence N Depression/ depression N Heart Disease N Pre-Eclampsia N Hypertension N Osteoporosis N Thrombophilias N Gynecological History Statement/Question Response Abnormal Pap Y Flow Heavy Date of Last Mammogram 07/14/2020 Date of LMP 01/28/2025 N Was last menstrual period normal Y STIs/STDs N HPV Vaccine Y Duration of Flow (days) 5 10 Current Control Method None Are cycles usually normal Y Date of Last Colonoscopy Frequency of Cycle (Q days) 28 Sexually Active? Y Menses Monthly Y Date of DEXA bone scan Age of first menstrual cycle 8 Date of Last Pap Smear 08/22/2024 Sexual Problems? Y LMP Definite N Obstetrics History GPAL:G 0 P 0 0 0 0 Past Encounters Encounter ID Performer Location Encounter Start Date Encounter Closed Date Diagnosis/Indication Diagnosis SNOMED-CT Code Diagnosis ICD10 Code Diagnosis IMO Codes Diagnosis Note [id number] Jennyfer Smith [facility] [address],[place] [address] 01/26/2020 10:01:57 01/26/2020 11:29:45 Mastodynia of bilateral breasts [id number] 1130786 N64.4 Breast tenderness of both breasts cyclically related Exam wnl We agreed to 90d trial of Evening [place] oil plant based omega with monthly SBE. RTO x 3mos or sooner if changes noted. Time spent in visit is a total of 15 mins with at least 50% of visit consisting of counseling and review of plan of care. [id number] Jennyfer Smith [place] [address],[place] [address] 06/28/2020 11:20:10 06/28/2020 13:40:01 Mastodynia of bilateral breasts [id number] N64.4 We agreed to pursue imaging for further evaluation based on today's exam & current status. In addition, we discussed likely need for referral breast specialist even if imaging is wnl for this issue. She is in agreement. Will await imaging results then refer to breast specialist in case there is additional issues. Time spent in visit is a total of 15 mins with at least 50% of visit consisting of counseling and review of plan of care. [id number] Jennyfer Smith [facility] [address],[place] [address] 04/01/2021 12:33:48 04/01/2021 14:05:27 Gynecologic examination [id number] Z01.419 Take Calcium with Vitamin D 1200mg daily if not receiving in daily diet. It is strongly advised to have an annual flu shot and up can obtain at most pharmacies . If you have not had a TDap shot in the last 10 years you should obtain one as well. Discussed with patient & provided with informatio n regarding Gardisil vaccine to prevent the 4 strains for HPV that cause cervical cancer if under age 26. Encourage safe sexual practices, to use condoms and limit partners if not already in a monogamous relationsh ip. Do monthly self breast exams. Have mammogram yearly or every other year depending on family history. BRCA testing is now available for patients with strong genetic history of female cancer. If interested contact the office. Engage in daily exercise of low impact aerobic exercise 45-60 minutes 4-5 times weekly. Avoid tobacco and illicit drugs as well as using moderation with alcohol intake less than 1-2 8 oz beverages daily. This lifestyle behavior pattern will lead to less health conditions and longer life span. If BMI greater than 25 weight watchers or dietary consult advised. Patient received above instructio ns, and questions have been answered. If you have any questions please call or respond to this email. Patient was made aware of the patient portal and may obtain a paper copy of today's plan if desired. Primary pap sentSTD updatedNo issues or concernsBC : condoms [id number] [facility] [address],[place] [address] 05/05/2022 11:54:22 05/06/2022 10:40:31 Abnormal uterine bleeding [id number] 9100 N93.9 Today sx's have resolved.W ill keep menstrual diary and if has intermenst rual BTB/spotti ng with next cycles accompanie d by cieloan t dysmenorrh ea she is to call & schedule TVUS and appt.Decli fernando need for updated std screen-no new partners. Hx of kidney stonesCond [facility] Time spent in visit is a total of 15 mins with at least 50% of visit consisting of counseling and review of plan of care. [id number] Darnell Beal MD [place] [address],[place] [address] 05/11/2022 17:01:42 05/12/2022 15:02:17 Abnormal uterine bleeding [id number] 9100 N93.9 [id number] Darnell Beal MD [place] [address],[place] [address] 07/28/2022 14:32:45 07/28/2022 15:29:59 Pain in pelvis 21661266 R10.2 N93.9 [id number] Jennyfer Smith [facility] [address],[place] [address] 05/15/2023 09:36:20 05/15/2023 10:09:41 Gynecologic examination [id number] Z01.419 Z11.3 Z11.8 Take Calcium with Vitamin D 1200mg daily if not receiving in daily diet. It is strongly advised to have an annual flu shot and up can obtain at most pharmacies . If you have not had a TDap shot in the last 10 years you should obtain one as well. Discussed with patient & provided with informatio n regarding Gardisil vaccine to prevent the 4 strains for HPV that cause cervical cancer if under age 26. Encourage safe sexual practices, to use condoms and limit partners if not already in a monogamous relationsh ip. Do monthly self breast exams. Have mammogram yearly or every other year depending on family history. BRCA testing is now available for patients with strong genetic history of female cancer. If interested contact the office. Engage in daily exercise of low impact aerobic exercise 45-60 minutes 4-5 times weekly. Avoid tobacco and illicit drugs as well as using moderation with alcohol intake less than 1-2 8 oz beverages daily. This lifestyle behavior pattern will lead to less health conditions and longer life span. If BMI greater than 25 weight watchers or dietary consult advised. Patient received above instructio ns, and questions have been answered. If you have any questions please call or respond to this email. Patient was made aware of the patient portal and may obtain a paper copy of today's plan if desired. Pap due Screen declinedGe netic Screen discussedC olon Screen naDexa Screen naRoutine Labs PCP Vaginitis [id number] N76.0 Suspect BV on examRx sentCounse led on medication R/B's, Most common side effects, & use. All questions were answered to patient satisfacti on. [id number] Jennyfer Smith [facility] [address],[facility] [place] [address] 08/30/2023 09:00:15 08/30/2023 09:50:27 Vaginitis [id number] N76.0 N94.810 Questionab le vaginal infection causing vestibulit is vs vestibulit is from contact irritants in this area from environmen t. +Dyspareun ia which also causing issues with using tampons+bu rning discomfort feeling with long periods of sittingSx' s increase with more discharge present or changes in menstrual cycle.Will send vaginitis swab prior to dispensing treatment for vag infection. Consider boric acid moving forwardCon energy director that this is vulvodynia which would require possible SSRI/Tricy clic antidepres smiley/Gabap entin as possibilit ies. VCG sheet reviewed & will begin to incorporat e these into routine to remove contact irritants then see what her progress is in 4wks. Time spent in visit is a total of 26 mins with at least 50% of visit consisting of counseling and review of plan of care. [id number] [facility] [address],[place] [address] 09/27/2023 15:38:53 10/04/2023 02:32:52 Inflammation of vestibule of vulva [id number] N94.810 Latha has been following the vulvar care guidelines which she voices has significan tly improved the vulvar irritation she has been experienci ng for months. She realized may laundry products/h ygeine products were irritating her skin; omitted these and has shown great improvemen t in sx's.She has not yet had sexual relations to see if dyspareuni a is still an issue for her; so she will reach out if she experience s any issues here. She feels happy with her current progress and will continue VCG's.No further needs today. Time spent in visit is a total of 15 mins with at least 50% of visit consisting of counseling and review of plan of care. [id number] MELODY Suarez [place] [address],[facility] [place] [address] 08/22/2024 11:11:36 08/25/2024 18:24:06 Gynecologic examination [id number] Z01.419 WWEBC - declined. Considerin len OROPEZA soon, encouraged daily PNVPap - done todaySTI screen - declinedRo utine labs - UTD/PCPRTC in 1 yr or sooner if needed It is strongly advised to have an annual flu shot and up can obtain at most pharmacies . If you have not had a TDap shot in the last 10 years you should obtain one as well. Discussed with patient & provided with informatio n regarding the HPV vaccine if applicable . Encourage safe sexual practices, to use condoms and limit partners if not already in a monogamous relationsh ip. Do monthly self breast exams. BRCA testing is now available for patients with strong genetic history of female cancer. If interested contact the office. Engage in regular exercise. Avoid tobacco and illicit drugs. This lifestyle behavior pattern will lead to less health conditions and longer life span. If BMI greater than 25 dietary consult advised. Questions answered. [id number] SANDRA ORTA MD [place] [address],[place] [address] 09/09/2024 14:16:04 09/09/2024 15:32:12 Screening procedure [id number] Z13.9 Low grade squamous intraepithelial lesion on cervical Papanicolaou smear [id number] 9105 R87.612 - colposcopy performed today- will follow up on results as available [id number] MELODY Suarez [place] [address],[place] [address] 02/05/2025 10:33:18 02/05/2025 12:24:21 Pain in female genitalia on intercourse 41807557 N94.10 [id number] UA done/cx sentvagini tis/STI panel sentrx for BV/yeast sent, r/b/a reviewedvu lvar care guidelines discusseds uspect some PFD, rec pelvic floor physical therapy. Referral placedwill plan pelvic u/s as well, ordered Time spent in visit is a total of 30 mins with at least 50% of visit consisting of counseling and review of plan of care. Vaginal irritation 54503 6004 N89.8 [id number] Darnell Beal MD [place] [address],[facility] [place] [address] 02/11/2025 11:59:13 02/11/2025 12:38:25 Pain in pelvis 74732112 R10.2 N94.10 [id number] Health Concerns Section Related Observation LastModified by Organization Detai ls LastModified Time None Recorded Concern Status LastModified by Organization Details LastModified Time None Recorded Advance Directives Directive N: Payers Insurance Date Sequence Insurance Name Policy Number Policy White Covered Member ID White Member ID Guarantor Name 02/10/2025 1 [facility] PRIOR TO 02/10/2021 (MEDICAID REPLACEMENT - HMO) Renuka Noel [id number] Renuka Cohen 02/20/2025 1 [facility] ON OR AFTER 02/10/21 (MEDICAID REPLACEMENT - HMO) [id number] Renuka Noel [id number] Renuka Cohen Notes Date Note Type Note Provider Name and Address Organization Details Recorded Time 4 text/html ROS as noted in the HPI Latha is here today for a vulva check f/u for possible vestibulitis. MELODY Menchaca- [address], [place], [address], [facility] 10/03/2023 15:59:10 5 text/html Annual GYNReported by PatientGenitourinary symptomsFor menstrual cycle, patient reportsnormal menses. For urinary symptoms, patient reportsno hematuriaandno incontinence. For vulva, patient reportsno genital lesion. For vagina, patient reportsnormal vaginal discharge.Breast symptomsFor breast, patient reportsno breast pain,no breast lump, andno nipple discharge.Endocrine symptomsFor sexual complaints, patient reportsno sexual complaints,no pain during intercourse, andnormal libido. For menopausal symptoms, patient reportsno menopausal symptomsandnormal vaginal lubrication.Psychological symptomsFor psychological symptoms, patient reportsno depression,no anxiety, andno pmdd.Preventative measuresFor preventive measures, patient reportsencourage self breast examination,encourage regular exercise,encourage no tobacco use, andencourage regular mammograms starting age 40.23yo wweno h/o abnormal papslast pap onsidering TTC in the next year MELODY Suarez [address], [place], [address], [facility] 08/25/2024 09:23:57 5 text/html Patient presents for colposcopy, indicated for LSIL on recent pap. SANDRA ORTA MD [address], [place], [address], [facility] 09/09/2024 15:27:46 5 text/html 24yopresents for evaluation of pain with IC. Symptoms started 2-3 months ago. Previous to this no issues with IC. Has noticed discomfort/burning during every act of IC, symptoms resolve once IC is over. Low libido d/t this.Uses condoms for BCno new partners no AUBno itching, discharge, odorsno n/v/fbowel movements wnl MELODY Suarez [address], [place], [address], [facility] 02/05/2025 12:23:12 OBGyn Episode No OBEpisode recorded.
--- OUTSIDE RECORDS SUMMARY | 2025-07-08 00:25 | XMS_ITS | Clinical Summary ---
Author Organization [facility] Address [address] [place] [address] Phone Care Team Providers Care Singeing Torch Operator Name Role Phone Edgar Handy Primary Care Provider [phone] Allergies Active Allergy Reactions Criticality Noted Date Comments Banana Hives Medium 08/28/2019 Pts allergy is to banana flower. Banana Flakes Hives 08/28/2019 Pts allergy is to banana flower. Medications Lincoln-3 Fatty Acids (FISH OIL PO) Take 1 Tablet by mouth nightly. 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 Microcytosis 08/28/2019 Leucopenia 08/28/2019 Immunizations Immunization Administration Dates Next Due Covid-19, Mrna, Lnp-s, Pf, 1 00 Mcg Or 50 Mcg Dose (MODERNA) 01/02/2022,12/22/2020,11/09/2020 DTAP VACCINE 10/28/2010, 4,02/10/2001,01/15,12/14/1999,11/14/1999 Hepatitis A Vaccine, Pediatric/adolescent, 2 Dose Schedule 10/18/2011 Hepatitis A, Pediatric, Unsp ecified Formulation 10/28/2010 Hepatitis B Vaccine 09/11/2020 Hepatitis B Vaccine, Pediatric/adolescent 02/12/2002,09/14/2001,08/15/2001 Human Papillomavirus Vaccine (HPV), quadrivalent 05/05/2011,12/31/2010,10/31/2010 Inactivated Polio Vaccine 12/24/2003 Influenza Vaccine 09/02/2012 Influenza Vaccine Quadrivalent Nasal 06/11/2014 MMR Vaccine 12/24/2003,05/31/2003 Meningococcal MCV4O 10/28/2010 Meningococcal Vaccine 10/19/2014 OPV 01/16/2000,12/14/1999,11/14/1999 TDAP Vaccine 10/28/2010 Varicella Vaccine Live 10/28/2010,01/25/2004 Family History Relation Name Status Comments Brother Alive Father Alive Mother Alive Sister Alive Social History Tobacco Use Types Packs/Day Years Used Date Smoking Tobacco: Never Smokeless Tobacco: Never Tobacco Cessation:Counseling Given: Not Answered Alcohol Use Standard Drinks/Week Comments Not Currently 0 (1 standard drink = 0.6 oz pur e alcohol) PHQ-2 Answer Date Recorded Total Score - Questions 1-9 0 03/14 Sexually Active Control Partners Comments Yes None Male Comments Unknown Sex and Gender Information Value Date Recorded Sex Assigned at Not on file Legal Sex Female 9:20 AM JOINT FINISHER Gender Identity Not on file Sexual Orientation Not on file 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 Not on file Not on file Not on denise e Last Filed Vital Signs Vital Sign Reading Time Taken Comments Blood Pressure 112/64 07/02/2023 2:35 PM JOINT FINISHER Pulse 62 07/02/2023 2:35 PM JOINT FINISHER Temperature 36.6 C (97.8 F) 07/02/2023 2:35 PM JOINT FINISHER Respiratory Rate 18 07/02/2023 2:35 PM JOINT FINISHER Oxygen Saturation 99% 07/02/2023 2:35 PM JOINT FINISHER Inhaled Oxygen Concentration - - Weight 56.5 kg (124 lb 8 oz) 07/02/2023 2:35 PM JOINT FINISHER Height 157.5 cm (5' 2) 07/02/2023 2:35 PM JOINT FINISHER Body Mass Index 22.77 07/02/2023 2:35 PM JOINT FINISHER Plan of Treatment Health Maintenance Due Date Last Done Comments Hepatitis C Virus (HCV) Screening 1998 Pneumococcal Immunization Combined (1 of 2 - PCV) 2017 Pap Smear 2019 Influenza Immunization (#1) 2025 08/0 03/2023, 06/11/2014, 09/02/2012 SARS-COV-2 Immunization (5 - 2025-26 season) 2025 11/11/2022, 01/02/2022, 12/22/2020, Additional history exists DTaP/Tdap/Td Immunization (9 - Td or Tdap) 07/08/2032 07/08/2022, 10/28/2010, 10/28/2010, Additional history exists Respiratory Syncytial Virus (RSV) Immunization (Adult) (1 - 1-dose 75+ series) 2073 Varicella Immunization Completed 10/28/2010, 2003 Human Papillomavirus (HPV) Immunization Completed 05/05/2011, 12/31/2010, 10/31/2010 Meningococcal Immunization (ACWY) Completed 10/19/2014, 10/28/2010 Hepatitis B Immunization Completed 021, 02/12/2002, 09/14/2001, Additional history exists Rotavirus Immunization Aged Out No lo nger eligible based on patient's age to complete this topic Insurance MEDICAID [employer] Care Teams Singeing Torch Operator Relationship Specialty Start Date End Date Handy Hernández [address] [address] PCP - General Family Medicine 07/25/19
--- OUTSIDE RECORDS SUMMARY | 2025-07-08 00:25 | XMS_ITS | Encounter Summary ---
Author Organization [facility] Address [address] [place] [address] Phone Care Team Providers Care Warp Knitter Helper Name Role Phone Handy Hernández Primary Care Provider [phone] Encounter Details Date Type Department Care Team (Late st Contact Info) Description 11/22/2020 Lab Requisition [facility] [address] [place] [address] Chrissy Mooney MD [address] [place] [address] Social History Tobacco Use Types Packs/Day Years Used Date Smoking Tobacco: Never Smokeless Tobacco: Never Alcohol Use Standard Drinks/Week Comments Not Currently 0 (1 standard drink = 0.6 oz pur e alcohol) PHQ-2 Answer Date Recorded Total Score - Questions 1-9 0 10/11 Sexually Active Control Partners Comments Yes None Male Comments Unknown Sex and Gender Information Value Date Recorded Sex Assigned at Not on file Legal Sex Female 9:20 AM MANAGER NEONATAL Gender Identity Not on file Sexual Orientation Not on file 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 Other Non-Phlebotomy Collection / Unknown 11/22/2020 10:00 AM CDT 11/22/2020 2:31 PM CDT Narrative [facility] - 11/22/2020 10:27 PM CDT Authorized Fact Sheets about this test for providers and patients are available at: https://www.fda.gov/medical-devices/mxcwdknhz-emxgycynby-dcizyow-devices/emergen cy-us e-authorizations us Chrissy Mooney MD MICROBIOLOGY - GENERAL ORDERA BLE Final Result [facility] [address] [place] [address], documented in this encounter Visit Diagnoses Not on filedocumented in this encounter Additional Health Concerns Infection Onset Date Last Indicated Resolved Time COVID - 19 11/22/2020 11/22/2020 12/12/2020 12:1 8 AM CDT Assessment Noted Time PHQ-9 Depression Total Score: 0 10/30/19 20 1:21 PM CDT documented as of this encounter Care Teams Warp Knitter Helper Relationship Specialty Start Date End Date Handy Hernández [address] [place] [address] PCP - General Family Medicine 07/25/19 documented as of this encounter
--- OUTSIDE RECORDS SUMMARY | 2025-07-08 00:25 | XMS_ITS | Encounter Summary ---
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 trachomatis. A negative result does not preclude C. trachomatis infection because results are dependent on adequate specimen collection, absence of inhibitors, and sufficient DNA to be detected. This test was performed using Polymerase Chain Reaction (PCR) on the [employer] 4800 System. GC DNA NEGATIVE NEGATIVE 11/23/2020 1:02 PM CDT [facility] Comment: Presumed negative for N. gonorrhoeae. A negative result does not preclude N. gonorrhoeae infection because results are dependent on adequate specimen collection, absence of inhibitors, and sufficient DNA to be detected. This test was performed using Polymerase Chain Reaction (PCR) on the [employer] 4800 System. Other URINE / Unknown 11/22/2020 9 :38 AM CDT 11/22/2020 2:49 PM CDT us Chrissy Mooney MD MICROBIOLOGY - GENERAL [facility] Final Result [facility] [address] [address], documented in this encounter Visit Diagnoses Not on filedocumented in this encounter Additional Health Concerns Infection Onset Date Last Indicated Resolved Time COVID - 19 11/22/2020 11/22/2020 12/12/2020 12:1 8 AM CDT Assessment Noted Time PHQ-9 Depression Total Score: 0 10/30/19 20 1:21 PM CDT documented as of this encounter Care Teams Die Maker Stamping Relationship Specialty Start Date End Date Handy Hernández [address] [address] PCP - General Family Medicine 07/25/19 documented as of this encounter
--- OUTSIDE RECORDS SUMMARY | 2025-07-08 00:25 | XMS_ITS | Clinical Summary ---
Author Organization [facility] Address [address] [facility] [place] [address] Care Team Providers Care Form Setter Steel Forms Name Role Phone Handy Hernández MD Primary Care Provider [phone] Source Comments [facility],non-[facility] rehab Affiliates and Associated Physician Practices is amultiple site organization consisting of ambulatory clinics and hospital sitesin [place], [place], [place] and [place]. This disclosure is being madepursuant to the Care Everywhere program and may not contain all information available regarding this patient. Last updated 18.[facility] Allergies Active Allergy Reactions Criticality Noted Date Comments Banana Urticaria Medium 08/28/2019 Pts allergy is to banana flower. Medications * Be aware that medications may not be up to date on this document. Alwaysverify current medications with the patient. 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 Overview (04/12/2015): Onset 1yo 04/07/15 jeffreyve bx; [facility] [id number] Ganglion cyst of right dorsal wrist 04/07/2015 Overview (04/07/2015): Onset December 2014; asymptomatic Family History Medical History Relation Name Comments Diabetes; unknown type Maternal Grandmother Diabetes; unknown type Mother Miscarriage Mother Relation Name Status Comments Maternal Grandmother Mother Social History Tobacco Use Types Packs/Day Years Used Date Smoking Tobacco: Never Smokeless Tobacco: Never Alcohol Use Standard Drinks/Week Comments Yes 0 (1 standard drink = 0.6 oz pur e alcohol) AUDIT-C Answer Date Recorded Q1: How often do you have a drink containing alc ohol? Monthly or less 08/11/2020 Average Number of Drinks Not on file 020 Frequency of Binge Drinking Not on file 07/15 Comments No Sex and Gender Information Value Date Recorded Sex Assigned at Not on file Legal Sex Female 3:13 PM CDT Gender Identity Not on file Sexual Orientation Not on file Last Filed Vital Signs Vital Sign Reading Time Taken Comments Blood Pressure 119/70 08/11/2020 2:22 PM SHORT ORDER FRY COOK Pulse 70 08/11/2020 2:22 PM SHORT ORDER FRY COOK Temperature 35.8 C (96.5 F) 08/11/2020 2:22 PM SHORT ORDER FRY COOK Respiratory Rate - - Oxygen Saturation - - Inhaled Oxygen Concentration - - Weight 55.5 kg (122 lb 6.4 oz) 08/11/2020 2:22 P M SHORT ORDER FRY COOK Height 160 cm (5' 3) 08/11/2020 2:22 PM SHORT ORDER FRY COOK Body Mass Index 21.68 08/11/2020 2:22 PM SHORT ORDER FRY COOK Plan of Treatment Health Maintenance Due Date Last Done Comments HIV SCREENING 2013 HPV VACCINE (1 - 3-dose series) 2013 HEPATITIS C SCREENING 09/21/2016 DTAP/TDAP/TD VACCINES (1 - Tdap) 2017 HEPATITIS B VACCINE (1 of 3 - 19+ 3-dose series) 2017 DEPRESSION SCREENING 08/13/2024 COVID-19 VACCINE (1 - 2024-2 6 season) 2025 INFLUENZA VACCINE (#1) 2025 ZOSTER VACCINE (1 of 2) 2048 HIB VACCINE Aged Out No longer eligi ble based on patient's age to complete this topic MENINGOCOCCAL (Group B) VACC INE SHARED DECISION-MAKING Aged Out No longer eligibl e based on patient's age to complete this topic MENINGOCOCCAL GROUPS A/C/Y/W VACCINE Aged Out No longer eligible b ased on patient's age to complete this topic PNEUMOCOCCAL VACCINE Aged Out No long er eligible based on patient's age to complete this topic Insurance [facility] Care Teams Form Setter Steel Forms Relationship Specialty Start Date End Date Handy Hernández MD PCP - General 07/16/20
--- OUTSIDE RECORDS SUMMARY | 2025-07-08 00:25 | XMS_ITS | Encounter Summary ---
Author Organization [facility] Address [address] [place] [address] Phone Care Team Providers Care Insulation Hoseman Name Role Phone Handy Hernández Primary Care Provider [phone] Encounter Details Date Type Department Care Team (Late st Contact Info) Description 06/30/2024 Telephone [facility] [address] [address] Vivek Lorenzo MD [address] [address] Social History Tobacco Use Types Packs/Day Years [...] on file Legal Sex Female 9:20 AM HARBOR MASTER Gender Identity Not on file Sexual Orientation Not on file 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 OR MASTER documented in this encounter Plan of Treatment Not on file documented as of this encounter Visit Diagnoses Not on filedocumented in this encounter Additional Health Concerns Assessment Noted Time PHQ-9 Depression Total Score: 0 04/07/20 10:56 AM CDT documented as of this encounter Care Teams Insulation Hoseman Relationship Specialty Start Date End Date Handy Hernández [address] [place] [address] PCP - General Family Medicine 07/25/19 documented as of this encounter
[2025-07-08 12:28] VITALS: BP 126/83; PULSE 107; RESP 16; TEMP 36.5; O2SAT 100
[2025-07-08 12:35] LABS: BEDSIDEPREGUCG Negative (Negative)
[2025-07-08] MEDS: LACTATED RINGERS 1,000 ML 150 ML IV CONT (12:40)
--- NOTE | 2025-07-08 12:41 | WPDANESEPPF ---
Anes - Initial Pre Proc Eval Procedure: Operation Date: 07/08/25 13:30 Proposed Procedures p EGD & Diagnostic Colonoscopy - Paul Kraft MD Date/Time: 07/08/25 12:41 Surgeon: Paul Kraft MD Pre Op Diagnosis: Gastro-esophageal reflux disease without esophagit Patient Data Age: 24 Gender: F Height: 1.6 m Weight: 51 kg Last Vital Signs Temp 36.5 C 07/08/25 12:28 Pulse 107 H 07/08/25 12:28 Resp 16 07/08/25 12:28 BP 126/83 07/08/25 12:28 Pulse Ox 100 07/08/25 12:28 O2 Del Method Room Air 07/08/25 12:28 Allergies Allergy/AdvReac Type Severity Reaction Status Date / Time banana AdvReac Severe Hives Verified 07/08/25 12:23 Home Medications ?Medication ?Instructions ?Recorded ?Confirmed ?Type Lacto-B.anim,bifid-inulin 50 1 cap PO DAILY 02/11/24 07/08/25 History billion cell-50 mg capsule,delay release (Fortify Probiotic) multivitamin 1 tablet PO DAILY 02/11/24 07/08/25 History omega-3 fatty acids 500 mg capsule 500 mg PO DAILY 02/11/24 07/08/25 History Laboratory Tests 07/08/25 12:33 POC Urine HCG, Qual Negative (Negative) Patient hx anesthesia problems: none Family hx anesthesia problems: none Results Review: All pre-operative results and documents have been reviewed as part of the pre-operative evaluation. [facility] Family History Family History Mother Hypertension Family history of elevated blood lipids Social History Social History Smoking status: Never smoker Alcohol intake: current Alcohol use details: rarely Substance use: never Substance use type: does not use Lack of Transportation: No Lack of Food: Never True Current Housing: I Have Housing Concerned About Future Housing: No Difficulty Paying Gas/Electric Bills: No Difficulty Paying for Meds: No Currently Unemployed: No Education: Bachelor's Degree Difficulty w/ Childcare or Family Care: No Living arrangements: with family Gender identity (if verbalized by the patient): Female Spiritual care concerns: No Anes - Eval Final PreProcedure Day of Procedure 07/08/25 12:41 Patient weight: normal Heart: regular rate and rhythm Lungs: clear to auscultation Airway: Mallampati scale class 1 Neurological: alert and oriented Last oral intake: >/= 8 hours ASA classification: I Emergent: no Anesthetic plan: proceed Anesthesia type and monitoring: general GIVS and standard monitoring Results Review: All pre-operative results and documents have been reviewed as part of the pre-operative evaluation. Informed Consent: The patient's anesthetic plan and its attendant risks and benefits were discussed with the patient/family/POA. Questions were solicited and answers provided to the satisfaction of the patient/family/POA.
--- NOTE | 2025-07-08 12:51 | PM.HPGS ---
History of Present Illness History of Present Illness Consent: Risks, benefits, and alternatives have been discussed and questions answered. Patient agrees to proceed with procedure. Chief complaint: Gastro-esophageal reflux disease without esophagit Narrative: Renuka Jeffery is a 24 year old female with gerd on pepcid, also blood in stools, never had scopes Review of Systems Review of Systems: All systems reviewed & are unremarkable except as noted in HPI and below PMFSH Past Medical History Medical History (Updated 07/08/25 @ 12:52 by Paul Kraft MD) Rectal bleeding GERD (gastroesophageal reflux disease) Family History Family History Mother Hypertension Family history of elevated blood lipids Social History Social History Smoking status: Never smoker Alcohol intake: current Alcohol use details: rarely Substance use: never Substance use type: does not use Lack of Transportation: No Lack of Food: Never True Current Housing: I Have Housing Concerned About Future Housing: No Difficulty Paying Gas/Electric Bills: No Difficulty Paying for Meds: No Currently Unemployed: No Education: Bachelor's Degree Difficulty w/ Childcare or Family Care: No Living arrangements: with family Gender identity (if verbalized by the patient): Female Spiritual care concerns: No Meds Home Medications and Allergies Home Medications ?Medication ?Instructions ?Recorded ?Confirmed ?Type Lacto-B.anim,bifid-inulin 50 1 cap PO DAILY 02/11/24 07/08/25 History billion cell-50 mg capsule,delay release (Fortify Probiotic) multivitamin 1 tablet PO DAILY 02/11/24 07/08/25 History omega-3 fatty acids 500 mg capsule 500 mg PO DAILY 02/11/24 07/08/25 History Allergies Allergy/AdvReac Type Severity Reaction Status Date / Time banana AdvReac Severe Hives Verified 07/08/25 12:23 Vital Signs Vital Signs - 24 hr 07/08/25 12:28 Temperature 97.7 F Pulse Rate 107 H Respiratory Rate 16 Blood Pressure 126/83 Pulse Oximetry 100 Oxygen Delivery Room Air Exam Const: General: comfortable and no acute distress HENMT: Face/Nose/Sinus: Normal nares present Eyes: General: appearance normal, both eyes and all related structures Neck: Neck: no JVD Resp: Auscultation: clear to auscultation bilaterally Cardio: Rate: regular rate Rhythm: regular rhythm GI: Inspection: non-distended GI Palp: Yes Soft to palpation Skin: General skin exam: normal color Extrem: General: normal to inspection Psych: Mental Status: mental status grossly normal Assessment and Plan Assessment and plan (1) GERD (gastroesophageal reflux disease): Code(s): K21.9 - Gastro-esophageal reflux disease without esophagitis Status: Acute Assessment and Plan: egd (2) Rectal bleeding: Code(s): K62.5 - Hemorrhage of anus and rectum Status: Acute Assessment and Plan: colonoscopy
--- NOTE | 2025-07-08 13:03 | S_PTH ---
PATIENT: Renuka Jeffery LOC: [facility]#:[id number] AGE/SX: 24/F ROOM: RE07/08/[address]: Palu Kraft MD : 2000 BED: DIS: 07/08/2025 SPEC #: [id number] RECD: 07/08/25 13:08 STATUS: BOBBY RETejas #: [id number] AZUL: 07/08/25 13:[address]: Paul Kraft DEPT: [facility] Surgical RECD BY: Dell Santiago ENTERED: 07/08/25 13:08 SP TYPE: Surgical OTHR DR: Handy Hernández MD Tissues: A - Gastric Biopsy Procedures: Hematoxylin and Eosin Stain Gross and Microscopic Level 4
--- NOTE | 2025-07-08 13:04 | SUR.OPER ---
EGD START 1249, END 1251 COLONOSCOPY START 1255, END 1303
[2025-07-08 13:05] VITALS: BP 103/61; PULSE 90; RESP 20; O2SAT 100
[2025-07-08 13:15] VITALS: BP 102/64; PULSE 100; RESP 19; O2SAT 100
[2025-07-08 13:25] VITALS: BP 107/67; PULSE 81; RESP 20; O2SAT 100
== END 2025-07-08 13:37 | disposition home or self-care (01) ==
PROVIDERS: PCP Emergency Medicine; Referring Provider Emergency Medicine; Visit Provider Internal Medicine Gastroenterology
PROC: 0DJ08ZZ Inspection of Upper Intestinal Tract, Via Natural or Artificial Opening Endoscopic (ICD-10-PCS; CPT 45378; principal; 2025-07-08 13:30)
DX: K21.9 Gastro-esophageal reflux disease without esophagitis (principal); K31.89 Other diseases of stomach and duodenum
CPT/HCPCS: 43239; 45378; 88305; J2704; J7120